=== PATIENT | male | born 1990 ===

== ENCOUNTER 2022-07-22 19:08 | Emergency (ER) | payer OTHER, SELFPAY ==
--- NOTE | ~2022-07-22 | CT_ITS ---
EXAMINATION: CT OF THE HEAD WITHOUT CONTRAST CLINICAL INFORMATION: Pain status post trauma COMPARISON: None. TECHNIQUE: Noncontrast CT scan of the head was obtained from the base of the skull to the vertex. FINDINGS: The ventricles and cisterns are normal in size, shape and configuration. There are no extra-axial surface collections or evidence of hemorrhage. Midline structures are central. The lunsford/white differentiation is maintained. The orbits appear normal bilaterally. The paranasal sinuses are clear. No fractures are seen. Presumably laceration right occiput. No underlying fracture. No radiopaque foreign body. CT/CT head/brain wo IV con IMPRESSION: No acute intracranial pathology. Exams: Imaging of left hand 4 views and right wrist 4 views each. HISTORY: Pain status post trauma. FINDINGS: Acute nondisplaced fracture distal right radial metaphysis. Articular surface preserved. Distal radius intact. Scaphoid intact. Mild soft tissue swelling. Left hand imaging demonstrates an acute impacted angulated comminuted fracture at the base of the fifth proximal phalanx. No dislocation. Scaphoid intact. Notable soft tissue swelling. IMPRESSION: Acute fractures as above.
[2022-07-22 19:09] VITALS: BP 141/103; PULSE 99; RESP 16; TEMP 36.8; O2SAT 97; BMI 22.3
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
[2022-07-22] MEDS: Diphth,Pertus(ACell),Tet Adult 0.5 ML SYRINGE IM (20:10)
[2022-07-22 20:17] VITALS: BP 128/81; PULSE 82; RESP 16; TEMP 36.9; O2SAT 95
[2022-07-22] MEDS: oxyCODONE HCl Immed Release 5 MG TABLET 10 MG PO (20:54)
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
== END 2022-07-22 21:27 | disposition home or self-care (01) ==
PROVIDERS: Emergency Provider Emergency Medicine
DX: S52.201A Unspecified fracture of shaft of right ulna, initial encounter for closed fracture (principal); S62.617A Displaced fracture of proximal phalanx of left little finger, initial encounter for closed fracture; S01.01XA Laceration without foreign body of scalp, initial encounter; Y00.XXXA Assault by blunt object, initial encounter; Y93.89 Activity, other specified; Y92.9 Unspecified place or not applicable; Z23 Encounter for immunization
CPT/HCPCS: 12002; 70450; 73110; 73130; 90471; 90715; 99284

== ENCOUNTER 2022-08-04 19:17 | Emergency (ER) | payer OTHER, SELFPAY ==
[2022-08-04 19:24] VITALS: BP 129/94; PULSE 92; RESP 18; TEMP 36.6; O2SAT 98; BMI 22.3
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
== END 2022-08-04 20:36 | disposition home or self-care (01) ==
PROVIDERS: Emergency Provider Emergency Medicine
DX: Z48.02 Encounter for removal of sutures (principal); S01.01XD Laceration without foreign body of scalp, subsequent encounter; X58.XXXD Exposure to other specified factors, subsequent encounter
CPT/HCPCS: 99282; 99283

== ENCOUNTER 2024-02-26 10:19 | Emergency (ER) | payer OTHER, SELFPAY ==
[2024-02-26 10:24] VITALS: BP 102/73; PULSE 66; RESP 18; TEMP 36.7; O2SAT 95; BMI 21.9
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
[2024-02-26 10:42] VITALS: BP 102/73; PULSE 66; RESP 18; TEMP 36.7; O2SAT 95
== END 2024-02-26 10:49 | disposition home or self-care (01) ==
PROVIDERS: Emergency Provider Emergency Medicine
DX: Z48.02 Encounter for removal of sutures (principal)
CPT/HCPCS: 99282

== ENCOUNTER 2025-04-05 12:34 | Emergency (ER) | payer OTHER, SELFPAY ==
[2025-04-05 13:06] VITALS: BP 127/85; PULSE 61; RESP 18; TEMP 36.7; O2SAT 96; BMI 26.9
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
--- OUTSIDE RECORDS SUMMARY | 2025-04-05 13:21 | XMS_ITS | Clinical Summary ---
Author Organization [facility] ity Address [address] [place] [address] Care Team Providers Care Head Worker Name Role Phone Unavailable Primary Care Provider Unavailabl e Social History Tobacco Use Types Packs/Day Years Used Date Smoking Tobacco: Never Assessed Sex and Gender Information Value Date Recorded Sex Assigned at Not on file Legal Sex Male 10:23 AM EST Gender Identity Not on file Sexual Orientation Not on file Plan of Treatment Health Maintenance Due Date Last Done Comments DTaP,Tdap,and Td Vaccines (1 - Tdap) 09/12/2011 Hepatitis B Vaccines (1 of 3 - 19+ 3-dose series) 09/12/2011 HPV Vaccines (1 - 3-dose SCD M series) 09/12/2019 Depression Screening 07/03/2024 COVID-19 Vaccine (1 - 2023-2 5 season) 2025 Influenza Vaccine (#1) 2025 RSV Immunization Adult Patie nts (1 - 1-dose 75+ series) 09/12/2067 HIB Vaccines Aged Out No longer eligi ble based on patient's age to complete this topic Hepatitis A Vaccines Aged Out No long er eligible based on patient's age to complete this topic IPV Vaccines Aged Out No longer eligi ble based on patient's age to complete this topic MMR Vaccines Aged Out No longer eligi ble based on patient's age to complete this topic Meningococcal ACWY Vaccine Aged Out N o longer eligible based on patient's age to complete this topic Meningococcal B Vaccine Aged Out No l onger eligible based on patient's age to complete this topic Pneumococcal Vaccine: Pediat rics (0 to 5 Years) and At-Risk Patients (6 to 49 Years) Aged Out No longer eligible b ased on patient's age to complete this topic RSV Immunization Patients Un surjit 20 months Aged Out No longer eligible b ased on patient's age to complete this topic Varicella Vaccines Aged Out No longer eligible based on patient's age to complete this topic
[2025-04-05 13:22] VITALS: BP 127/85; PULSE 61; RESP 18; TEMP 36.7; O2SAT 96
== END 2025-04-05 13:22 | disposition home or self-care (01) ==
PROVIDERS: Emergency Provider Emergency Medicine; PCP Internal Medicine
DX: Z48.02 Encounter for removal of sutures (principal)
CPT/HCPCS: 99282